=== PATIENT | female | born 1970 | race Caucasian/White ===

== ENCOUNTER 2018-11-23 07:06 | Emergency (ER) | payer OTHER ==
[2018-11-23 07:24] VITALS: BP 132/71; PULSE 99; RESP 18; TEMP 98.1
--- NOTE | 2018-11-23 08:14 | ED ---
General Adult HPI - General Chief complaint: Eye Problems Stated complaint: Cleaning solution in eye [facility] Time Seen by Provider: 11/23/18 07:25 Source: patient, RN notes reviewed Mode of arrival: ambulatory Limitations: no limitations - History of Present Illness Initial comments: patient is a pleasant 48-year-old female presenting to the emergency department after having been solution splashed in her eye. Patient states this was diluted some prior to getting into her eye. Patient states this was the right eye. Patient states this occurred around 7 AM. Patient states no change in vision. Patient states only minimal irritation, significant pain. No history of similar problems previously. No other area of involvement. Patient did wash her eye out with some water prior to coming to the emergency department. - Related Data Home Medications Medication Instructions Recorded Confirmed metFORMIN HCL [Glucophage] 850 mg PO BID 11/23/18 11/23/18 Allergies Allergy/AdvReac Type Severity Reaction Status Date / Time No Known Allergies Allergy Verified 11/23/18 07:36 Review of Systems ROS Statement: Those systems with pertinent positive or pertinent negative responses have been documented in the HPI. Constitutional: Denies: fever Eyes: Reports: as per HPI. Denies: eye discharge, vision change ENT: Denies: throat pain Respiratory: Denies: cough Cardiovascular: Denies: chest pain Endocrine: Denies: fatigue Gastrointestinal: Denies: abdominal pain Genitourinary: Denies: dysuria Musculoskeletal: Denies: back pain Skin: Denies: rash Neurological: Denies: weakness Past Medical History Past Medical History: Diabetes Mellitus, Hypertension History of Any Multi-Drug Resistant Organisms: None Reported Past Surgical History: No Surgical Hx Reported Past Psychological History: No Psychological Hx Reported Smoking Status: Never smoker Past Alcohol Use History: Occasional Past Drug Use History: None Reported General Exam Limitations: no limitations General appearance: alert, in no apparent distress Head exam: Present: atraumatic Eye exam: Present: normal appearance, PERRL, EOMI, other (no uptake with fluorescein staining. PH 7) Expanded Eyelids: Normal Inspection: Bilateral Pupils: Regular, Round: Bilateral Sclera/Conjunctival: Normal Inspection: Bilateral Posterior chamber: Normal Inspection: Bilateral ENT exam: Present: normal oropharynx Neck exam: Present: normal inspection Respiratory exam: Present: normal lung sounds bilaterally Cardiovascular Exam: Present: regular rate, normal rhythm Neurological exam: Present: alert Psychiatric exam: Present: normal affect, normal mood Skin exam: Absent: rash Course Vital Signs 11/23/18 07:20 Temperature 98.1 F Pulse Rate 99 Respiratory 18 Rate Blood Pressure 132/71 O2 Sat by Pulse 97 Oximetry Disposition Clinical Impression: Chemical exposure of eye Disposition: HOME SELF-CARE Condition: Stable Instructions (If sedation given, give patient instructions): Chemical Eye Dixon (ED) Additional Instructions: Please follow-up with primary care physician in the next day or 2 for recheck. Please return for visual changes, eye pain, drainage, fevers, redness, worsening symptoms or other concerns. Is patient prescribed a controlled substance at d/c from ED?: No Referrals: Juancarlos Klein DO [Primary Care Provider] - 1-2 days Time of Disposition: 08:12
== END 2018-11-23 08:15 | disposition home or self-care (01) ==
LOC: EC 07:06
DX: Z77.098 Contact with and (suspected) exposure to other hazardous, chiefly nonmedicinal, chemicals (principal); E11.9 Type 2 diabetes mellitus without complications; Z79.84 Long term (current) use of oral hypoglycemic drugs
CPT/HCPCS: 99283

== ENCOUNTER 2019-10-25 18:08 | Emergency (ER) | payer BC ==
--- NOTE | 2019-10-25 19:08 | XR ---
EXAMINATION TYPE: XR chest 2V DATE OF EXAM: 10/25/2019 COMPARISON: NONE HISTORY: Fever cough and congestion TECHNIQUE: Frontal and lateral views of the chest are obtained. FINDINGS: There is no focal air space opacity, pleural effusion, or pneumothorax seen. The cardiac silhouette size is within normal limits. The osseous structures are intact. IMPRESSION: No acute cardiopulmonary process.
[2019-10-25 19:26] VITALS: BP 131/86; PULSE 109; RESP 20; TEMP 102.1
[2019-10-25] MEDS ORDERED: IBUPROFEN 600 MG TAB PO STA (19:48)
[2019-10-25] MEDS ORDERED: OSELTAMIVIR 75 MG CAP PO STA (19:48)
--- NOTE | 2019-10-25 20:00 | ED ---
URI HPI - General Chief Complaint: Upper Respiratory Infection Stated Complaint: chest heaviness, cough Time Seen by Provider: 10/25/19 18:30 Source: patient Mode of arrival: ambulatory Limitations: no limitations - History of Present Illness Initial Comments: The patient is a 49 year old female with past medical history of diabetes and hypertension who presents emergency Department with reported fever, cough, earache and congestion. She states that her symptoms started last night. She did go to work today and states that she had to leave work because she felt ill. She does arrive and is found to be febrile. 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 She is denying any headaches or visual changes. No neck pain or stiffness. Denies any nausea or vomiting. Does admit to a cough which is nonproductive. No chest pain. Denies any abdominal pain, nausea or vomiting. She denies any shortness of breath. She took Motrin around 1:00 for her symptoms. She denies any back or flank pain. No changes in her bowel or bladder habits. She is a diabetic but states that her sugars have been well under control. She did not receive a flu shot. There are no alleviating, precipitating or modifying factors - Related Data Home Medications Medication Instructions Recorded Confirmed metFORMIN HCL [Glucophage] 850 mg PO BID 11/23/18 11/23/18 Previous Rx's Medication Instructions Recorded Oseltamivir [Tamiflu] 75 mg PO Q12HR #10 cap 10/25/19 Allergies Allergy/AdvReac Type Severity Reaction Status Date / Time No Known Allergies Allergy Verified 11/23/18 07:36 Review of Systems ROS Statement: Those systems with pertinent positive or pertinent negative responses have been documented in the HPI. ROS Other: All systems not noted in ROS Statement are negative. Past Medical History Past Medical History: Diabetes Mellitus, Hypertension History of Any Multi-Drug Resistant Organisms: None Reported Past Surgical History: No Surgical Hx Reported Past Psychological History: No Psychological Hx Reported Smoking Status: Never smoker Past Alcohol Use History: Occasional Past Drug Use History: None Reported General Exam Limitations: no limitations General appearance: alert, in no apparent distress Head exam: Present: atraumatic, normocephalic, normal inspection Eye exam: Present: normal appearance, PERRL, EOMI. Absent: scleral icterus, conjunctival injection, periorbital swelling ENT exam: Present: normal exam, mucous membranes moist Neck exam: Present: normal inspection. Absent: tenderness, meningismus, lymphadenopathy Respiratory exam: Present: normal lung sounds bilaterally. Absent: respiratory distress, wheezes, rales, rhonchi, stridor Cardiovascular Exam: Present: regular rate, normal rhythm, normal heart sounds. Absent: systolic murmur, diastolic murmur, rubs, gallop, clicks GI/Abdominal exam: Present: soft, normal bowel sounds. Absent: distended, tenderness, guarding, rebound, rigid Extremities exam: Present: normal inspection, full ROM, normal capillary refill. Absent: tenderness, pedal edema, joint swelling, calf tenderness Back exam: Present: normal inspection Neurological exam: Present: alert, oriented X3, CN II-XII intact Psychiatric exam: Present: normal affect, normal mood Skin exam: Present: warm, dry, intact, normal color. Absent: rash Course Vital Signs 10/25/19 10/25/19 18:31 19:22 Temperature 102.4 F H 102.1 F H Pulse Rate 119 H 109 H Respiratory 18 20 Rate Blood Pressure 125/69 131/86 O2 Sat by Pulse 97 95 Oximetry Medical Decision Making - Medical Decision Making Upon arrival the patient was placed into room 14. A thorough history and physical was performed. The patient did have a chest x-ray performed as well as a flu swab. Flu swab shows the patient is positive for influenza A. Glucose is 154. Chest x-ray demonstrates no acute intrathoracic finding. I did discuss these results with the patient. She is given Motrin for fever control. I discussed diagnosis, differential and treatment options. I did offer further testing for additional sources of infection. This includes blood work and a urinalysis. Patient refused. She denies concern for she is currently on her menstrual cycle. She does not want any further testing. I did inform her of the risks of not completing any further testing the patient understood. She needs to follow-up with her primary care doctor in 2-4 days. Should return to the emergency room for any new or worsening symptoms. The patient was given a dose of Tamiflu in the ER. I then sent a prescription for the pharmacy. The patient was then discharged home in stable condition - Lab Data Lab Results 10/25/19 10/25/19 Range/Units 18:37 20:02 POC Glucose (mg/dL) 154 H (75-99) mg/dL POC Glu Engine Manager ID Marge Perez Influenza Type A RNA Detected H (Not Detectd) Influenza Type B (PCR) Not Detected (Not Detectd) Disposition Clinical Impression: Cough, Influenza A Disposition: HOME SELF-CARE Condition: Stable Instructions (If sedation given, give patient instructions): Influenza (ED) Additional Instructions: Please follow up with your primary care doctor in 2-4 days. Return to the emergency room for any new worsening symptoms Prescriptions: Oseltamivir [Tamiflu] 75 mg PO Q12HR #10 cap Is patient prescribed a controlled substance at d/c from ED?: No Referrals: Juancarlos Klein DO [Primary Care Provider] - 1-2 days Time of Disposition: 19:59
[2019-10-25 20:04] LABS: Glucose,Whole Blood 154 mg/dL (75-99)
== END 2019-10-25 20:08 | disposition home or self-care (01) ==
LOC: EC 18:08
DX: J10.1 Influenza due to other identified influenza virus with other respiratory manifestations (principal); E11.9 Type 2 diabetes mellitus without complications; I10 Essential (primary) hypertension; Z79.84 Long term (current) use of oral hypoglycemic drugs
CPT/HCPCS: 36415; 71046; 87502; 99283

== ENCOUNTER 2020-12-04 04:09 | Observation (INO) | payer BC ==
--- NOTE | 2020-12-04 04:25 | ED ---
Chest Pain HPI - General Stated Complaint: Chest Pain Time Seen by Provider: 12/04/20 04:18 Source: RN notes reviewed, old records reviewed Limitations: no limitations - History of Present Illness Initial Comments: This is a 42-year-old female DF for evaluation patient Dese for evaluation of chest pain. Patient has persistent chest pain here in the emergency department history of high blood pressure history of diabetes. No recent cardiac evaluation. No fevers cough or congestion recent travel history or sick contacts. Chest pain woke her up from sleep tonight and has been persistent -: hour(s) Onset: during rest, awoke with symptoms Pain Location: left chest Pain Radiation: LUE Severity: moderate Severity scale (1-10): 4 Quality: tightness, heaviness Consistency: constant Improves With: nothing Worsens With: nothing Anginal Symptoms: dyspnea Other Symptoms: other (none) Treatments Prior to Arrival: none - Related Data Home Medications Medication Instructions Recorded Confirmed metFORMIN HCL [Glucophage] 850 mg PO BID 11/23/18 11/23/18 Previous Rx's Medication Instructions Recorded Oseltamivir [Tamiflu] 75 mg PO Q12HR #10 cap 10/25/19 Allergies Allergy/AdvReac Type Severity Reaction Status Date / Time No Known Allergies Allergy Verified 12/04/20 04:24 Review of Systems ROS Statement: Those systems with pertinent positive or pertinent negative responses have been documented in the HPI. ROS Other: All systems not noted in ROS Statement are negative. EKG Findings - EKG Comments: EKG Findings:: EKG is sinus rhythm 92 MI 176 QRS 86 QTc 462 Past Medical History Past Medical History: Diabetes Mellitus, Hypertension History of Any Multi-Drug Resistant Organisms: None Reported Past Surgical History: No Surgical Hx Reported Past Psychological History: No Psychological Hx Reported Past Alcohol Use History: Occasional Past Drug Use History: None Reported General Exam General appearance: alert, in no apparent distress Head exam: Present: atraumatic, normocephalic, normal inspection Eye exam: Present: normal appearance, PERRL, EOMI. Absent: scleral icterus, conjunctival injection, periorbital swelling ENT exam: Present: normal exam, mucous membranes moist Neck exam: Present: normal inspection. Absent: tenderness, meningismus, lymphadenopathy Respiratory exam: Present: normal lung sounds bilaterally. Absent: respiratory distress, wheezes, rales, rhonchi, stridor Cardiovascular Exam: Present: regular rate, normal rhythm, normal heart sounds. Absent: systolic murmur, diastolic murmur, rubs, gallop, clicks GI/Abdominal exam: Present: soft, normal bowel sounds. Absent: distended, tenderness, guarding, rebound, rigid Extremities exam: Present: normal inspection, full ROM, normal capillary refill. Absent: tenderness, pedal edema, joint swelling, calf tenderness Back exam: Present: normal inspection Neurological exam: Present: alert, oriented X3, CN II-XII intact Psychiatric exam: Present: normal affect, normal mood Skin exam: Present: warm, dry, intact, normal color. Absent: rash Course Vital Signs 12/04/20 04:24 Temperature 97.8 F Pulse Rate 97 Respiratory 16 Rate Blood Pressure 146/88 O2 Sat by Pulse 97 Oximetry - Reevaluation(s) Reevaluation #1: 12/04/20 05:36 Medical record is reviewed Reevaluation #2: 12/04/20 05:36 Patient has persistent chest pain here in the ER Reevaluation #3: 12/04/20 05:36 Spoke with patient regarding findings and results, questions answered Chest Pain MDM - MDM 42 female with chest pain high blood pressure high cholesterol coming in for chest pain and heaviness on chest. Patient be admitted for chest pain observation Critical Care Time Critical Care Time: Yes Total Critical Care Time: 31 Disposition Clinical Impression: Chest pain Disposition: ADMITTED IP TO THIS HOSP Condition: Undetermined Is patient prescribed a controlled substance at d/c from ED?: No Referrals: Juancarlos Klein DO [Primary Care Provider] - 1-2 days
[2020-12-04 04:49] LABS: Basophils # (A) 0.1 k/uL (0-0.2); Basophils % (A) 1 %; Eosinophils # (A) 0.4 k/uL (0-0.7); Eosinophils % (A) 3 %; HCT 43.4 % (34.0-46.0); HGB 13.9 gm/dL (11.4-16.0); Lymphocytes # (A) 3.1 k/uL (1.0-4.8); Lymphocytes % (A) 25 %; MCV 81.2 fL (80.0-100.0); Mean Platelet Volume 7.3; Monocytes # (A) 0.7 k/uL (0-1.0); Monocytes % (A) 6 %; Neutrophils % (A) 64 %; Platelet Count 390 k/uL (150-450); RBC 5.34 m/uL (3.80-5.40); RDW 13.8 % (11.5-15.5); WBC 12.4 k/uL (3.8-10.6)
--- NOTE | 2020-12-04 04:53 | XR ---
EXAM: XR Chest, 2 Views CLINICAL HISTORY: ITS.REASON XR Reason: Chest Pain TECHNIQUE: Frontal and lateral views of the chest. COMPARISON: Chest x-ray dated 10/25/2019 FINDINGS: Lungs: Unremarkable. Pleural space: Unremarkable. Heart: Unremarkable. Mediastinum: Unremarkable. Bones/joints: Unremarkable. IMPRESSION: Normal chest x-rays.
[2020-12-04 05:03] LABS: ALT 27 U/L (4-34); AST 31 U/L (14-36); African American GFR (CKD) >90 (>60 ml/min/1.73 sqM); Alkaline Phosphatase 105 U/L (38-126); Anion Gap 6 mmol/L; Blood Urea Nitrogen 12 mg/dL (7-17); Carbon Dioxide 27 mmol/L (22-30); Chloride 102 mmol/L (98-107); Creatine Kinase 105 U/L (30-135); Glucose 274 mg/dL (74-99); Lipase 246 U/L (23-300); Magnesium 1.8 mg/dL (1.6-2.3); Non-African American GFR(CKD) >90 (>60 ml/min/1.73 sqM); Potassium 4.6 mmol/L (3.5-5.1); Sodium 135 mmol/L (137-145); Total Bilirubin 0.3 mg/dL (0.2-1.3); Total Protein 7.4 g/dL (6.3-8.2)
[2020-12-04 05:06] LABS: D-Dimer 0.3 mg/L FEU (<0.60); INR 0.9 (<1.2); Partial Thromboplastin Time 22.6 sec (22.0-30.0); Prothrombin Time 9.5 sec (9.0-12.0)
[2020-12-04] MEDS ORDERED: MORPHINE SULFATE 4 MG/ML SYRINGE IV PRN (05:34)
[2020-12-04] MEDS ORDERED: NITROGLYCERIN SL TABS 0.4 MG TAB SUBLINGUAL PRN (05:34)
[2020-12-04] MEDS ORDERED: ASPIRIN 81 MG PO STA (05:34)
[2020-12-04 07:02] LABS: Glucose,Whole Blood 240 mg/dL (75-99)
[2020-12-04 07:52] VITALS: BP 151/89; PULSE 94; RESP 15; TEMP 97.9
[2020-12-04] MEDS ORDERED: METOPROLOL TARTRATE 25 MG TAB PO SCH (09:00)
[2020-12-04] MEDS ORDERED: ATORVASTATIN 80 MG TAB PO SCH (09:00)
[2020-12-04] MEDS ORDERED: lisinopriL 5 MG TAB PO SCH (10:45)
--- NOTE | 2020-12-04 11:02 | P.CRDCN ---
History of Present Illness History of present illness: HISTORY OF PRESENTING ILLNESS This is a pleasant 50-year-old female past medical history significant for diabetes mellitus, obesity and hypertension. 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 Her father had an UT in his 40's. We have been asked to see in consultation for chest pain. She states last night after getting home from work she developed a pain and tightness across her chest. The discomfort was constant with no radiation to the back, neck, arm or jaw. She had some mild associated nausea. She went to bed and feel asleep without issue. However, she woke up around 0400 with ongoing chest tightness and this time radiation through to her back prompting her to come into the hospital. She is currently chest pain free. At times her pain felt mildly intensified with deep breathing. She states is feels similar to how she has felt in the past when she had bronchitis or pnuemonia. DIAGNOSTICS EKG reveals sinus mechanism with no acute ST or T wave abnormalities noted. Telemetry tracings indicate sinus rhythm. Chest xray negative for an acute cardiopulmonary process. Laboratory reviewed, WBC 12.4, hemoglobin 13.9, platelets 390, d-dimer 0.3, sodium 135, potassium 4.6, creatinine 0.56, magnesium 1.8, cardiac enzymes negative 2, NT proBNP 37. Current cardiac medications include Toprol 25 mg daily. REVIEW OF SYSTEMS At the time of my exam: CONSTITUTIONAL: Denies fever or chills. CARDIOVASCULAR: Denies chest pain, shortness of breath, orthopnea, PND or palpitations. RESPIRATORY: Denies cough. GASTROINTESTINAL: Denies abdominal pain, diarrhea, constipation, nausea or vomiting. MUSCULOSKELETAL: Denies myalgias. NEUROLOGIC: Denies numbness, tingling, headacbe or weakness. ENDOCRINE: Denies fatigue, weight change, polydipsia or polyurina. GENITOURINARY: Denies burning, hematuria or urgency with micturation. HEMATOLOGIC: Denies history of anemia or bleeding. PHYSICAL EXAMINATION Blood pressure 151/89 heart rate 94 afebrile and maintaining oxygen saturation on room air. CONSTITUTIONAL: No apparent distress. HEENT: Head is normocephalic. Pupils are equal, round. Sclerae anicteric. Mucous membranes of the mouth are moist. No JVD. No carotid bruit. CHEST EXAMINATION: Lungs are clear to auscultation. No chest wall tenderness is noted on palpation or with deep breathing. HEART EXAMINATION: Regular rate and rhythm. S1, S2 heard. No murmurs, gallops or rub. ABDOMEN: Soft, nontender. Positive bowel sounds. EXTREMITIES: 2+ peripheral pulses, no lower extremity edema and no calf te nderness. NEUROLOGIC EXAMINATION: Patient is awake, alert and oriented x3. ASSESSMENT Chest pain Leukocytosis Diabetes mellitus Hypertension Family history of premature coronary artery disease Morbid obesity, BMI 40 PLAN An acute coronary event has been ruled out. Perform stress echocardiogram to assess for stress-induced cardiac ischemia. Given her history of diabetes mellitus and hypertension we recommend initiation of atorvastatin 40 mg daily and lisinopril 5 mg daily. If stress test is normal she may be discharged from a cardiac perspective. Follow-up in the office with Dr. Walker in 2 weeks. Thank you kindly for this consultation. Nurse Practitioner note has been reviewed, I agree with a documented findings and plan of care. Patient was seen and examined. Past Medical History Past Medical History: Diabetes Mellitus, Hypertension History of Any Multi-Drug Resistant Organisms: None Reported Past Surgical History: No Surgical Hx Reported Past Anesthesia/Blood Transfusion Reactions: No Reported Reaction Past Psychological History: No Psychological Hx Reported Smoking Status: Never smoker Past Alcohol Use History: Occasional Past Drug Use History: None Reported Medications and Allergies Home Medications Medication Instructions Recorded Confirmed Type Dulaglutide [Trulicity] 1.5 mg SQ CASTRO 12/04/20 12/04/20 History Metoprolol Succinate (ER) [Toprol 25 mg PO DAILY 12/04/20 12/04/20 History Xl] Omeprazole 40 mg PO DAILY 12/04/20 12/04/20 History glipiZIDE XL [Glucotrol Xl] 5 mg PO DAILY 12/04/20 12/04/20 History metFORMIN HCL [Glucophage] 1,000 mg PO BID 12/04/20 12/04/20 History Allergies Allergy/AdvReac Type Severity Reaction Status Date / Time No Known Allergies Allergy Verified 12/04/20 06:30 Physical Exam Vitals: Vital Signs Temp Pulse Pulse Resp BP BP Pulse Ox 12/04/20 07:00 97.9 F 94 15 151/89 97 12/04/20 06:32 98.1 F 76 18 129/82 98 12/04/20 05:26 92 18 133/82 98 03/08/21 04:24 97.8 F 97 16 146/88 97 Intake and Output 12/03/20 12/04/20 12/04/20 22:59 06:59 14:59 Other: Weight 99.79 kg 99.79 kg Results 12/04/20 04:31 12/04/20 04:31 Cardiac Enzymes 12/04/20 12/04/20 12/04/20 Range/Units 04:31 04:31 06:49 AST 31 (14-36) U/L Troponin I <0.012 <0.012 (0.000-0.034) ng/mL Coagulation 12/04/20 Range/Units 04:31 PT 9.5 (9.0-12.0) sec APTT 22.6 (22.0-30.0) sec CBC 12/04/20 Range/Units 04:31 WBC 12.4 H (3.8-10.6) k/uL RBC 5.34 (3.80-5.40) m/uL Hgb 13.9 (11.4-16.0) gm/dL Hct 43.4 (34.0-46.0) % Plt Count 390 (150-450) k/uL Comprehensive Metabolic Panel 12/04/20 Range/Units 04:31 Sodium 135 L (137-145) mmol/L Potassium 4.6 (3.5-5.1) mmol/L Chloride 102 (98-107) mmol/L Carbon Dioxide 27 (22-30) mmol/L BUN 12 (7-17) mg/dL Creatinine 0.56 (0.52-1.04) mg/dL Glucose 274 H (74-99) mg/dL Calcium 9.0 (8.4-10.2) mg/dL AST 31 (14-36) U/L ALT 27 (4-34) U/L Alkaline Phosphatase 105 (38-126) U/L Total Protein 7.4 (6.3-8.2) g/dL Albumin 4.0 (3.5-5.0) g/dL Current Medications Generic Name Dose Route Start Last Admin Trade Name Freq PRN Reason Stop Dose Admin Aspirin 325 mg 12/05/20 09:00 Aspirin 325 Mg Tab PO DAILY [facility] Atorvastatin Calcium 80 mg 12/04/20 09:00 Atorvastatin 80 Mg Tab PO DAILY [facility] Metoprolol Tartrate 25 mg 12/04/20 09:00 Metoprolol Tartrate 25 Mg Tab PO BID [facility] Morphine Sulfate 4 mg 12/04/20 05:34 Morphine Sulfate 4 Mg/Ml Syringe IV Q4HR PRN Chest Pain Nitroglycerin 0.4 mg 12/04/20 05:34 Nitroglycerin Sl Tabs 0.4 Mg Tab SUBLINGUAL Q5M PRN Chest Pain Intake and Output 12/03/20 12/04/20 12/04/20 22:59 06:59 14:59 Other: Weight 99.79 kg 99.79 kg Patient Weight 12/05/20 06:59 Weight 99.79 kg 12/04/20 04:31 12/04/20 04:31
[2020-12-04 11:50] LABS: Glucose,Whole Blood 143 mg/dL (75-99)
--- NOTE | 2020-12-04 14:55 | HP ---
HISTORY AND PHYSICAL HISTORY AND PHYSICAL AND DISCHARGE SUMMARY: DATE OF SERVICE: 12/04/2020 CHIEF COMPLAINT: Chest pain. HISTORY OF PRESENT ILLNESS: This is a 50-year-old woman with a past medical history of multiple medical issues including diabetes, hypertension, being followed by Dr. Klein in the outpatient setting was complaining of severe chest pain which was across the anterior part of the chest. The patient apparently working heavily, also. The patient came to [facility]. Myocardial infarction ruled out. Cardiology performed a cardiac stress which was negative. Patient will be discharged after this at this time. There is no history of fever, rigors. No history of headache, loss of consciousness or seizures. The patient had normal D-dimer. The blood sugar is elevated. COVID-19 was negative. PAST MEDICAL HISTORY: History of diabetes, hypertension. MEDICATIONS: Home medications were: 1. Metformin. 2. Glucotrol. 3. Omeprazole. 4. Trulicity. 5. Zestril. 6. Lipitor. 7. Aspirin. Doses are reviewed. ALLERGIES: None. FAMILY HISTORY: No history of heart disease or strokes in the family. SOCIAL HISTORY: The patient works in the hospital. Otherwise, no history of smoking. Occasional alcohol intake. REVIEW OF SYSTEMS: ENT: No diminished hearing or diminished vision. CARDIOVASCULAR SYSTEM: As mentioned earlier. RESPIRATORY SYSTEM: As mentioned earlier. GI: No nausea. : No dysuria. NERVOUS SYSTEM: No numbness or weakness. ALLERGY/IMMUNOLOGY: No asthma, hayfever. MUSCULOSKELETAL: As mentioned earlier. HEMATOLOGY: No history of anemia. ENDOCRINE: As mentioned earlier. CONSTITUTIONAL: As mentioned earlier. DERMATOLOGY: Negative. RHEUMATOLOGY: Negative. PSYCHIATRY: As mentioned earlier. PHYSICAL EXAMINATION: Patient is alert and oriented x3. Pulse 76, blood pressure 129/82, respiration 18, temperature 98.1, pulse ox 98% on 2 L. HEENT: Conjunctivae normal. NECK: No jugular venous distention. CARDIOVASCULAR: S1, S2 muffled. RESPIRATORY: Breath sounds diminished at the bases. No rhonchi, no crackles. ABDOMEN: Soft, obese, nontender. No mass palpable. LEGS: No edema, no swelling. NERVOUS SYSTEM: Higher function as mentioned earlier. Moves all 4 limbs. No focal motor or sensory deficits. LYMPHATICS: No lymphadenopathy of the neck, axillae or groin. SKIN: No ulcer, rash or bleeding. JOINTS: No active deforming arthropathy. LABS: WBC 12.4, sodium 135, glucose 274. ASSESSMENT: 1. Chest pain, possibly musculoskeletal, negative stress test. 2. Hyponatremia. 3. Increased WBC. 4. Diabetes mellitus type 2. 5. Hypertension. 6. Obesity with body mass index of 40.2. RECOMMENDATIONS AND DISCUSSION: This 50-year-old woman who presented with complex medical issues, at this time stress test came as negative. Cardiology recommended the patient to be discharge. I would recommend the patient to be discharge. Closely follow Dr. Klein in the outpatient setting as well as Cardiology. DISCHARGE RECOMMENDATIONS AND MEDICATIONS: 1. Diet is cardiac. 2. Activity limited until followup. 3. Stop metoprolol. Medications are: 1. Glucophage 1000 mg b.i.d. 2. Glucotrol 5 mg 3. Omeprazole 40 mg daily. 4. Trulicity 1.5 mg subcutaneous. 5. Aspirin 81 mg daily. 6. Lipitor 40 mg at bedtime. 7. Nitrostat p.r.n. 8. Zestril 5 mg p.o. daily. Once again, the patient will be discharged in a stable condition with guarded prognosis. MMODL / IJN: [id number] / MTDD
--- NOTE | 2020-12-04 15:17 | ECHOS ---
STRESS ECHOCARDIOGRAM LUMASON: N/A Vial INDICATIONS: Chest pain MEDICATIONS: BASELINE HEART RATE: 83 BASELINE BLOOD PRESSURE: 123/73 MAXIMUM HEART RATE: 162 MAXIMUM BLOOD PRESSURE: 195/86 85% MPHR: 146 100% MPHR: 172 METS: 7.9 MAXIMUM STAGE REACHED: 3 TOTAL EXERCISE TIME: 6 minutes 43 seconds CLINICAL INFORMATION: Baseline rhythm is a sinus mechanism, rate of 83, normal axis and intervals. Normal electrocardiogram. Baseline blood pressure 123/73 mmHg. Patient exercised on Mario protocol for 6 minutes 43 seconds reaching a peak rate of 162 beats per minute which is equal to 94% maximum predicted heart rate. Peak blood pressure 195/86 mmHg. Test was terminated secondary to fatigue. There was no chest pain. Electrocardiograph monitoring revealed no evidence of diagnostic ischemic ST deviation. Baseline echocardiogram revealed normal wall motion. At peak exercise, there was normal wall motion augmentation with no hypokinesis or dyskinesis. CONCLUSION: 1. Average exercise tolerance with normal electrocardiograph response to exercise. 2. Normal stress echocardiogram with no evidence of stress-induced ischemia. MMODL / IJN: [id number] /
[2020-12-04 16:21] LABS: Chol/HDL Ratio 3.93; LDL Cholesterol,Calculated 100.2 mg/dL (0.0-131.0); VLDL Calculation 25.8 mg/dL (5.00-40.00)
[2020-12-04] MEDS ORDERED: ATORVASTATIN 40 MG TAB PO SCH (21:00)
[2020-12-05] MEDS ORDERED: ASPIRIN 325 MG TAB PO SCH (09:00)
[2020-12-05] MEDS ORDERED: ASPIRIN 81 MG PO SCH (09:00)
== END 2020-12-04 13:35 | disposition home or self-care (01) ==
LOC: EC 04:09 → 6NMEDSUR 05:35
PROVIDERS: ADMIT Hospitalist; ATTEND Hospitalist
DX: R07.89 Other chest pain (principal); E87.1 Hypo-osmolality and hyponatremia; D72.829 Elevated white blood cell count, unspecified; E11.9 Type 2 diabetes mellitus without complications; I10 Essential (primary) hypertension; E78.00 Pure hypercholesterolemia, unspecified; R06.00 Dyspnea, unspecified; R11.0 Nausea; E66.01 Morbid (severe) obesity due to excess calories; Z68.41 Body mass index [BMI] 40.0-44.9, adult; Z20.822 Contact with and (suspected) exposure to COVID-19; Z79.84 Long term (current) use of oral hypoglycemic drugs; Z79.899 Other long term (current) drug therapy; Z87.01 Personal history of pneumonia (recurrent); Z87.09 Personal history of other diseases of the respiratory system; Z82.49 Family history of ischemic heart disease and other diseases of the circulatory system
CPT/HCPCS: 99291; 36415; 93005; 93351; 85379; 83880; 80061; 80053; 82550; 83690; 83735; 84484; 85025; 85610; 85730; 87635; 71046; G0378

== ENCOUNTER 2022-03-03 19:58 | Emergency (ER) | payer BC ==
--- NOTE | 2022-03-03 20:38 | ED ---
Chest Pain HPI - General Chief Complaint: Chest Pain Stated Complaint: Tightness in chest since 03/01 Time Seen by Provider: 03/03/22 20:28 Source: patient, RN notes reviewed Mode of arrival: ambulatory Limitations: no limitations - History of Present Illness Initial Comments: 50-year-old female who presents with complaints of palpitations she has a hist ory of this in the past supposedly related to anxiety she did have an is going on since 3 days ago. They are lasting between 10 and 20 seconds at a time palpitations with chest discomfort and shortness of breath. She also complains some upper back pain when this happens also. She has of a history of hypertension but no known history of heart or lung disease. No other current complaints or modifying factors MD Complaint: chest pain, other - Related Data Home Medications Medication Instructions Recorded Confirmed metFORMIN HCL [Glucophage] 1,000 mg PO BID 12/04/20 03/03/22 Dulaglutide [Trulicity] 4.5 mg SQ CASTRO 03/03/22 03/03/22 Losartan Potassium 50 mg PO DAILY 03/03/22 03/03/22 Previous Rx's Medication Instructions Recorded Nitroglycerin Sl Tabs [Nitrostat] 0.4 mg SUBLINGUAL Q5M PRN #28 tab 12/04/20 Cyclobenzaprine [Flexeril] 10 mg PO TID #14 tab 03/03/22 Ibuprofen 800 mg PO Q6HR PRN #20 tablet 03/03/22 Allergies Allergy/AdvReac Type Severity Reaction Status Date / Time No Known Allergies Allergy Verified 03/03/22 22:08 Review of Systems ROS Statement: Those systems with pertinent positive or pertinent negative responses have been documented in the HPI. ROS Other: All systems not noted in ROS Statement are negative. EKG Findings - EKG Results: EKG: interpreted by ERMD, sinus rhythm, normal axis, normal QRS, normal ST/T, no acute changes (Normal sinus rhythm of 91 AZ interval 165 QRS duration 90 QT since QTC 346/395 st-t wave changes some artifact present) Past Medical History Past Medical History: Diabetes Mellitus, Hypertension History of Any Multi-Drug Resistant Organisms: None Reported Past Surgical History: No Surgical Hx Reported Past Anesthesia/Blood Transfusion Reactions: No Reported Reaction Past Psychological History: No Psychological Hx Reported Smoking Status: Never smoker Past Alcohol Use History: Occasional Past Drug Use History: None Reported General Exam - General Exam Comments Initial Comments: This is a well-developed well-nourished awake alert oriented 4 female Limitations: no limitations General appearance: alert, anxious Head exam: Present: atraumatic, normocephalic, normal inspection Eye exam: Present: normal appearance, PERRL, EOMI. Absent: scleral icterus, conjunctival injection, periorbital swelling ENT exam: Present: normal exam, mucous membranes moist Neck exam: Present: normal inspection, full ROM, other (Stridor JVD or bruits). Absent: tenderness, meningismus, lymphadenopathy Respiratory exam: Present: normal lung sounds bilaterally, chest wall tenderness (Tennis palpation along the costochondral margins). Absent: respiratory distress, wheezes, rales, rhonchi, stridor Cardiovascular Exam: Present: regular rate, normal rhythm, normal heart sounds. Absent: systolic murmur, diastolic murmur, rubs, gallop, clicks GI/Abdominal exam: Present: soft, normal bowel sounds. Absent: distended, tenderness, guarding, rebound, rigid Extremities exam: Present: normal inspection, full ROM, normal capillary refill. Absent: tenderness, pedal edema, joint swelling, calf tenderness Back exam: Present: normal inspection, tenderness (Tennis palpation of the paraspinous musculature and rhomboid muscle groups) Neurological exam: Present: alert, oriented X3, CN II-XII intact Psychiatric exam: Present: normal affect, normal mood Skin exam: Present: warm, dry, intact, normal color. Absent: rash Course Vital Signs 03/03/22 03/03/22 03/03/22 20:13 20:20 21:25 Temperature 98.1 F 97.6 F Pulse Rate 101 H 98 Pulse Rate [ 96 Instructor Tap Dancing ] Respiratory 16 18 Rate Blood Pressure 144/76 136/78 O2 Sat by Pulse 97 98 Oximetry Chest Pain MDM - MDM Imaging reviewed no acute findings. I did discuss findings with patient patient presentation doesn't appear to be consistent with musculoskeletal pain. We did a long discussion regarding the findings patient will be discharged on anti- inflammatories and muscle relaxers. Disposition Clinical Impression: Chest wall syndrome, Costochondritis Disposition: HOME SELF-CARE Condition: Good Instructions (If sedation given, give patient instructions): Costochondritis (ED), Musculoskeletal Pain (ED) Prescriptions: Cyclobenzaprine [Flexeril] 10 mg PO TID #14 tab Ibuprofen 800 mg PO Q6HR PRN #20 tablet PRN Reason: Pain Is patient prescribed a controlled substance at d/c from ED?: No Referrals: Juancarlos Klein DO [Primary Care Provider] - 1-2 days Decision Date: 03/03/22 Decision Time: 22:44
--- NOTE | 2022-03-03 21:00 | XR ---
EXAMINATION TYPE: XR chest 2V DATE OF EXAM: 03/03/2022 COMPARISON: 12/04/2020 HISTORY: Chest pain TECHNIQUE: 2 views FINDINGS: Heart and mediastinum are normal. Lungs are clear. Diaphragm is normal. Bony thorax appears normal. IMPRESSION: Normal chest.
[2022-03-03 21:06] LABS: Basophils # (A) 0.1 k/uL (0-0.2); Basophils % (A) 1 %; Eosinophils # (A) 0.3 k/uL (0-0.7); Eosinophils % (A) 3 %; HCT 43.3 % (34.0-46.0); HGB 13.5 gm/dL (11.4-16.0); Hypochromasia Slight; Lymphocytes % (A) 31 %; MCH 26.2 pg (25.0-35.0); MCHC 31.1 g/dL (31.0-37.0); MCV 84.1 fL (80.0-100.0); Monocytes # (A) 0.7 k/uL (0-1.0); Monocytes % (A) 5 %; Neutrophils # (A) 7.5 k/uL (1.3-7.7); Neutrophils % (A) 59 %; Platelet Count 413 k/uL (150-450); RBC 5.15 m/uL (3.80-5.40); RDW 14.4 % (11.5-15.5); WBC 12.9 k/uL (3.8-10.6)
[2022-03-03 21:24] LABS: ALT 29 U/L (4-34); AST 32 U/L (14-36); African American GFR (CKD) >90 (>60 ml/min/1.73 sqM); Albumin 4.3 g/dL (3.5-5.0); Alkaline Phosphatase 92 U/L (38-126); Anion Gap 9 mmol/L; Blood Urea Nitrogen 15 mg/dL (7-17); Calcium 8.9 mg/dL (8.4-10.2); Carbon Dioxide 25 mmol/L (22-30); Chloride 103 mmol/L (98-107); Glucose 333 mg/dL (74-99); Lipase 129 U/L (23-300); Magnesium 1.8 mg/dL (1.6-2.3); Non-African American GFR(CKD) >90 (>60 ml/min/1.73 sqM); Potassium 4.6 mmol/L (3.5-5.1); Sodium 137 mmol/L (137-145); Total Bilirubin <0.1 mg/dL (0.2-1.3); Total Protein 7.8 g/dL (6.3-8.2)
[2022-03-03 21:28] LABS: INR 0.9 (<1.2); Partial Thromboplastin Time 24.3 sec (22.0-30.0); Prothrombin Time 9.7 sec (9.0-12.0)
[2022-03-03] MEDS ORDERED: KETOROLAC 15 MG/ML 1 ML VIAL IVP STA (22:40)
[2022-03-03 23:17] VITALS: BP 137/80; PULSE 92; RESP 16; TEMP 97.9
== END 2022-03-03 23:16 | disposition home or self-care (01) ==
LOC: EC 19:58
DX: M94.0 Chondrocostal junction syndrome [Tietze] (principal); R07.1 Chest pain on breathing; E11.9 Type 2 diabetes mellitus without complications; I10 Essential (primary) hypertension
CPT/HCPCS: 36415; 93005; 85379; 83880; 80053; 84443; 83690; 83735; 84484; 85025; 85610; 85730; 71046; 99285; 96374; J1885

== ENCOUNTER 2022-09-13 08:48 | Day surgery (SDC) | payer BC ==
[2022-09-13 09:36] VITALS: RESP 16; TEMP 97.9
[2022-09-13] MEDS ORDERED: LACTATED RINGERS 1,000 ML IV SCH (09:36)
[2022-09-13 09:47] LABS: Glucose,Whole Blood 197 mg/dL (70-110)
[2022-09-13] MEDS ORDERED: LIDOCAINE 2% INJ 20 MG/ML (2 ML VIAL) ONE (10:00)
[2022-09-13] MEDS ORDERED: PROPOFOL 10 MG/ML 20 ML VIAL IV ONE (10:00)
--- NOTE | 2022-09-13 10:14 | P.PCN ---
Date of Procedure: 09/13/22 Procedure(s) Performed: BRIEF HISTORY: Patient is a 52-year-old pleasant white female scheduled for an elective colonoscopy as a part of screening for colon cancer PROCEDURE PERFORMED: Colonoscopy with biopsy and Snare Polypectomy. PREOPERATIVE DIAGNOSIS: Screening for colon cancer. IV sedation per Anesthesia. PROCEDURE: After informed consent was obtained, the patient, was brought into the endoscopy unit. IV sedation was administered by Anesthesia under continuous monitoring. Digital rectal examination was normal. Initially the Olympus CF-160 flexible video colonoscope was then inserted in the rectum, gradually advanced into the cecum without any difficulty. Careful examination was performed as the scope was gradually being withdrawn. Ileocecal valve and the appendiceal orifice were visualized and appeared normal. Prep was excellent. Mucosa of the cecum normal. Ascending colon there was a 3 mm polyp that was removed by cold biopsy. Rest of the, ascending colon, transverse colon, normal. The descending colon there was a 1 m polyp removed by snare polypectomy. In the sigmoid: There was a 3 mm polyp removed by cold biopsy. Rest of the , sigmoid colon, and rectum appeared normal. Retroflexion was performed in the rectum and no lesions were seen. The patient tolerated the procedure well. IMPRESSION: 3 mm ascending colon polyp status post cold biopsy 1 cm descending colon polyp status post snare polypectomy 3 mm sigmoid polyp status post cold biopsy RECOMMENDATIONS: Findings of this examination were discussed with the patient as well as her family. She was advised to follow with the biopsy results. If the biopsy results adenoma she can have a repeat colonoscopy in 3 years..
[2022-09-13 10:39] VITALS: BP 116/81; PULSE 91
== END 2022-09-13 10:52 | disposition home or self-care (01) ==
LOC: ORWHC2ENDO 08:48
PROVIDERS: ATTEND Internal Medicine Gastroenterology
DX: Z12.11 Encounter for screening for malignant neoplasm of colon (principal); D12.2 Benign neoplasm of ascending colon; D12.3 Benign neoplasm of transverse colon; D12.5 Benign neoplasm of sigmoid colon; I10 Essential (primary) hypertension; E11.9 Type 2 diabetes mellitus without complications; Z79.84 Long term (current) use of oral hypoglycemic drugs; Z79.899 Other long term (current) drug therapy
CPT/HCPCS: 81025; 88305; 45380; 45385; J2704; J2001

== ENCOUNTER 2025-04-22 20:07 | Emergency (ER) | payer BC ==
[2025-04-22 20:41] VITALS: TEMP 97.8
--- NOTE | 2025-04-22 21:11 | ED ---
Fall HPI - General Chief Complaint: Fall Stated Complaint: Fall Time Seen by Provider: 04/22/25 20:44 Source: patient Mode of arrival: ambulatory - History of Present Illness Initial Comments: 54-year-old female presenting with chief complaint of left knee and hand injury after trip and fall. She was walking her dog when she tripped and fell on a gravel road. She is having pain over the fifth metacarpal. There is some bruising and swelling as well. Patient has multiple abrasions and skin tears to her left knee. States that it is a bit sore but she still able to bear weight and ambulate. No head injury. Unsure when her last tetanus was. No numbness or tingling. - Related Data Home Medications Medication Instructions Recorded Confirmed metFORMIN HCL [Glucophage] 1,000 mg PO BID 12/04/20 09/13/22 Losartan Potassium 50 mg PO DAILY 03/03/22 09/13/22 Tirzepatide [Mounjaro] 2.5 mg SQ CASTRO 09/11/22 09/13/22 Allergies Allergy/AdvReac Type Severity Reaction Status Date / Time No Known Allergies Allergy Verified 04/22/25 20:41 Review of Systems ROS Statement: Those systems with pertinent positive or pertinent negative responses have been documented in the HPI. ROS Other: All systems not noted in ROS Statement are negative. Past Medical History Past Medical History: Chest Pain / Angina, Diabetes Mellitus, Hyperlipidemia, Hypertension Additional Past Medical History / Comment(s): ruled out mi. History of Any Multi-Drug Resistant Organisms: None Reported Past Surgical History: No Surgical Hx Reported Additional Past Surgical History / Comment(s): circlage when ,colonoscopy Past Anesthesia/Blood Transfusion Reactions: No Reported Reaction Past Psychological History: Anxiety Smoking Status: Never smoker Past Alcohol Use History: None Reported Past Drug Use History: None Reported General Exam General appearance: alert, in no apparent distress Head exam: Present: atraumatic, normocephalic, normal inspection Eye exam: Present: normal appearance, EOMI Neck exam: Present: normal inspection. Absent: meningismus Respiratory exam: Absent: respiratory distress Cardiovascular Exam: Present: regular rate Left Hand Wrist exam: Present: tenderness, swelling, ecchymosis. Absent: full ROM Left Knee exam: Present: full ROM, tenderness, abrasion. Absent: deformity Neurological exam: Present: alert, oriented X3 Psychiatric exam: Present: normal affect, normal mood Skin exam: Present: abrasion (L knee) Course Vital Signs 04/22/25 20:36 Temperature 97.8 F Pulse Rate 99 Respiratory 18 Rate Blood Pressure 146/83 O2 Sat by Pulse 97 Oximetry Medical Decision Making - Medical Decision Making Was pt. sent in by a medical professional or institution (, ENO[facility], RECEIVING CLERK, urgent care, hospital, or long-term...) When possible be specific @ -No Did you speak to anyone other than the patient for history (EMS, parent, family, police, friend...)? What history was obtained from this source @ -No Did you review nursing and triage notes (agree or disagree)? Why? @ -I reviewed and agree with nursing and triage notes Were old charts reviewed (outside hosp., previous admission, EMS record, old EKG, old radiological studies, urgent care reports/EKG's, long-term records)? Report findings @ -No old charts were reviewed Differential Diagnosis (chest pain, altered mental status, abdominal pain women, abdominal pain men, vaginal bleeding, weakness, fever, dyspnea, syncope, headache, dizziness, GI bleed, back pain, seizure, CVA, palpatations, mental health, musculoskeletal)? @ -Differential Musculoskeletal Muscular strain, contusion, ligament sprain, fracture, arthritis, septic arthritis, bursitis, cellulitis, muscle spasm, nerve compression, DVT, arterial occlusion, herpes zoster, electrolyte abnormality, tumor.... This is not meant to be in all inclusive list EKG interpreted by me (3pts min.). @ -As above X-rays interpreted by me (1pt min.). @ -X-ray of the hand shows no acute osseous process CT interpreted by me (1pt min.). @ -None done U/S interpreted by me (1pt. min.). @ -None done What testing was considered but not performed or refused? (CT, X-rays, U/S, labs)? Why? @ -None What meds were considered but not given or refused? Why? @ -None Did you discuss the management of the patient with other professionals (professionals i.e. , ENOCH, RECEIVING CLERK, lab, RT, psych nurse, director of social work, stitchdown toe former, teacher, peace officer, leather case finisher)? Give summary @ -No Was smoking cessation discussed for >3mins.? @ -No Was critical care preformed (if so, how long)? @ -No Were there social determinants of health that impacted care today? How? (Homelessness, low income, unemployed, alcoholism, drug addiction, transportation, low edu. Level, literacy, decrease access to med. care, alf, rehab)? @ -No Was there de-escalation of care discussed even if they declined (Discuss DNR or withdrawal of care, Hospice)? DNR status @ -No What co-morbidities impacted this encounter? (DM, HTN, Smoking, COPD, CAD, Cancer, CVA, ARF, Chemo, Hep., AIDS, mental health diagnosis, sleep apnea, morbid obesity)? @ -None Was patient admitted / discharged? Hospital course, mention meds given and route, prescriptions, significant lab abnormalities, going to OR and other pertinent info. @ -54-year-old female presenting with chief complaint of fall. She fell on the left knee and hand. She has multiple abrasions and skin tears to the left knee. Hand has pain over the fifth metacarpal. X-rays negative for fracture or dislocation. The wound is dressed with bacitracin. Tetanus is updated. Patient is educated on today's findings and supportive management at home. Follow-up with PCP. Report back to ER with any new or worsening symptoms. Discussed return parameters and answered all questions. Patient conveyed verbal understanding and agreed to the plan. I discussed this case in detail with my attending Dr. Clark Undiagnosed new problem with uncertain prognosis? @ -No Drug Therapy requiring intensive monitoring for toxicity (Heparin, Nitro, Insulin, Cardizem)? @ -No Were any procedures done? @ -No Diagnosis/symptom? @ -Abrasions to the knee, hand injury Acute, or Chronic, or Acute on Chronic? @ -Acute Uncomplicated (without systemic symptoms) or Complicated (systemic symptoms)? @ -Uncomplicated Side effects of treatment? @ -No Exacerbation, Progression, or Severe Exacerbation? @ -No Poses a threat to life or bodily function? How? (Chest pain, [place], [place], pneumonia, PE, COPD, DKA, ARF, appy, cholecystitis, CVA, Diverticulitis, Homicidal, Suicidal, threat to staff... and all critical care pts) @ -Unlikely Disposition Clinical Impression: Abrasion of left knee, Hand injury Disposition: HOME SELF-CARE Condition: Good Instructions (If sedation given, give patient instructions): Abrasion (ED), Hand Sprain (ED) Additional Instructions: Follow-up with PCP. Report back to ER with any new or worsening symptoms. Take Motrin Tylenol as needed for pain control. Rest, ice, elevate the hand and knee. Change her dressing on the knee daily, apply bacitracin with dressing changes. Is patient prescribed a controlled substance at d/c from ED?: No Referrals: Juancarlos Klein DO [Primary Care Provider] - 1-2 days Time of Disposition: 21:39
[2025-04-22] MEDS: ACETAMINOPHEN TAB 325 MG TAB PO STA (21:17)
[2025-04-22] MEDS: IBUPROFEN 600 MG TAB PO STA (21:17)
[2025-04-22] MEDS: DIPH,PERTUS(ACELL)TETVAC-LF 0.5 ML VIAL IM ONE (21:20)
[2025-04-22] MEDS: BACITRACIN ZINC 500 UNIT/GM OINT 28.4 GM TUBE TOPICAL ONE (21:26)
--- NOTE | 2025-04-22 21:29 | XR ---
EXAMINATION TYPE: XR hand complete LT DATE OF EXAM: 04/22/2025 9:19 PM COMPARISON: None. CLINICAL INDICATION: Female, 54 years old with history of fall, pain TECHNIQUE: XR hand complete LT XX views were obtained. FINDINGS: There is no acute fracture/dislocation evident. The joint spaces appear within normal limits. The ov erlying soft tissue appears unremarkable. IMPRESSION: No acute fracture or dislocation. [facility], , 04/22/2025 9:27 PM
[2025-04-22 21:43] VITALS: BP 134/79; PULSE 90; RESP 16
== END 2025-04-22 21:43 | disposition home or self-care (01) ==
LOC: EC 20:07
DX: S81.012A Laceration without foreign body, left knee, initial encounter (principal); S69.92XA Unspecified injury of left wrist, hand and finger(s), initial encounter; Z23 Encounter for immunization; W01.0XXA Fall on same level from slipping, tripping and stumbling without subsequent striking against object, initial encounter; Y93.K1 Activity, walking an animal
CPT/HCPCS: 90471; 90715; 99283